=== PATIENT | male | born 1995 | race Caucasian/White ===

== ENCOUNTER 2023-01-06 16:32 | Emergency (ER) | payer OTHER ==
[~2023-01-06] VITALS: Ht 170.2 cm; Wt 61.2 kg
[2023-01-06 17:01] LABS: BASOPHILS % (AUTO) 1 % (0-10); EOSINOPHILS # (AUTO) 0.1 10^3/uL (0.0-0.3); EOSINOPHILS % (AUTO) 1 % (0-10); HEMATOCRIT 42 % (40-54); HEMOGLOBIN 14.5 g/dL (13.3-17.7); LYMPHOCYTES # (AUTO) 3.6 10^3/uL (1.0-4.0); LYMPHOCYTES % (AUTO) 56 % (12-44); MEAN CORPUSCULAR HEMOGLOBIN 29 pg (25-34); MEAN CORPUSCULAR HGB CONC 34 g/dL (32-36); MEAN CORPUSCULAR VOLUME 85 fL (80-99); MEAN PLATELET VOLUME 10.1 fL (9.0-12.2); MONOCYTES # (AUTO) 0.3 10^3/uL (0.0-1.0); MONOCYTES % (AUTO) 5 % (0-12); NEUTROPHILS # (AUTO) 2.5 10^3/uL (1.8-7.8); NEUTROPHILS % (AUTO) 38 % (42-75); PLATELET COUNT 327 10^3/uL (130-400); WHITE BLOOD COUNT 6.6 10^3/uL (4.3-11.0)
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
[2023-01-06 17:18] LABS: ALBUMIN 4.2 GM/DL (3.2-4.5); POTASSIUM 3.7 MMOL/L (3.6-5.0)
[2023-01-06 17:19] LABS: CALCIUM 9.3 MG/DL (8.5-10.1)
[2023-01-06 17:20] LABS: INR 0.8 (0.8-1.4); PROTHROMBIN TIME PATIENT 11.7 SEC (12.2-14.7); TOTAL PROTEIN 6.7 GM/DL (6.4-8.2)
[2023-01-06 17:22] LABS: BILIRUBIN,TOTAL 0.4 MG/DL (0.1-1.0)
[2023-01-06 17:24] LABS: CREATININE SERUM 1.08 MG/DL (0.60-1.30)
[2023-01-06] MEDS ORDERED: morphine INJ 10 MG/ML 1ML (SYR OR VIAL) IVP ONE (17:30)
[2023-01-06] MEDS ORDERED: ONDANSETRON 4 MG/2 ML (SDV) Z0FRAN IVP ONE (17:30)
[2023-01-06 17:34] LABS: BILIRUBIN,URINE NEGATIVE (NEGATIVE); CLARITY,URINE CLEAR; COLOR,URINE YELLOW; GLUCOSE, URINE (UA) 3+ (NEGATIVE); KETONES,URINE NEGATIVE (NEGATIVE); LEUKOCYTE ESTERASE ,URINE NEGATIVE (NEGATIVE); NITRITE,URINE NEGATIVE (NEGATIVE); PROTEIN,URINE 1+ (NEGATIVE)
[2023-01-06 17:45] LABS: BACTERIA,URINE NEGATIVE /HPF; RBC,URINE RARE /HPF; SQUAMOUS EPITHELIAL CELL,UR 0-2 /HPF
--- NOTE | 2023-01-06 18:18 | Diagnostic Imaging Report ---
PROCEDURE: CT abdomen and pelvis with contrast. TECHNIQUE: Multiple contiguous axial images were obtained through the abdomen and pelvis after administration of intravenous contrast. Auto Exposure Controls were utilized during the CT exam to meet ALARA standards for radiation dose reduction. All CT scans use one or more of the following dose optimizing techniques: automated exposure control, MA and/or KvP adjustment based on patient size and exam type or iterative reconstruction. INDICATION: Abdominal pain, black stools COMPARISON: None available. FINDINGS: The visualized lung bases are clear. Cholecystectomy. The liver is mildly enlarged. No focal hepatic mass. The spleen is unremarkable. The adrenal glands are unremarkable. The pancreas is unremarkable. The kidneys are unremarkable. No aneurysmal dilatation of the abdominal aorta. The urinary bladder is predominantly decompressed, therefore not well evaluated. What is felt to relate to the appendix is unremarkable. No bowel obstruction or pneumatosis. No significant inflammatory stranding within the abdomen or pelvis. No significant adenopathy, free air, or free fluid within the abdomen or pelvis. Minimal scattered osseous degenerative changes without acute osseous abnormality. IMPRESSION: Mild hepatomegaly. Cholecystectomy. No acute abnormality identified. Dictated by: Dictated on workstation # [id number]
[2023-01-06] MEDS ORDERED: IOHEXOL 350 MG/ML 100 ML (OMNIPAQUE 350) VIAL IV ONE (18:30)
[2023-01-06] MEDS ORDERED: NS 100 ML (IVPB) BAG IV ONE (18:30)
[2023-01-06] MEDS ORDERED: HOLD METFORMIN - RECEIVED CONTRAST 20 ML VIAL IV SCH (18:30)
[2023-01-06 18:40] VITALS: BP 105/73
[2023-01-06] MEDS ORDERED: KETOROLAC 30 MG/ML VIAL IVP ONE (18:45)
== END 2023-01-06 18:40 | disposition home or self-care (01) ==
LOC: ER 16:35
DX: R10.13 Epigastric pain (principal); R10.12 Left upper quadrant pain; R10.32 Left lower quadrant pain; R16.0 Hepatomegaly, not elsewhere classified
CPT/HCPCS: 36415; 74177; 80053; 81000; 83690; 85025; 85610; 85730

== ENCOUNTER 2023-04-30 07:33 | Emergency (ER) | payer OTHER ==
[~2023-04-30] VITALS: Ht 170 cm; Wt 61.0 kg
--- NOTE | 2023-04-30 07:56 | ED Chest Pain ---
General Chief Complaint: Chest Pain Stated Complaint: CHEST PAIN | LEFT ARM PAIN | HEADACHE Nursing Triage Note: PT AMB TO RM 5 PT CO OF CHEST PAIN FOR APPROX 1 HOUR MIDDLE OF CHEST INTERMITTENT 7/10. PT CO OF NAUSEA. HAS SOME DIARRHEA BUT STATES IS NORMAL FOR HIM. PT HAS TYPE 1 IDDM FSBS THIS AM AT HOME 264. PT STATES HAS TAKEN 6 UNTIS OF NOVALIN INSULIN. PT STATES HAS ALSO HAD A JOHN FOR APPROX WEEK Source: patient Exam Limitations: no limitations History of Present Illness Date Seen by Provider: Apr 30, 2023 Time Seen by Provider: 07:43 Initial Comments Patient is a 27-year-old male who is a type I diabetic presents to the emergency room with a chief complaint left-sided substernal chest pain. 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 He states he is nauseated. No shortness of breath, no cough. Pain does not radiate. Nothing makes it any better or worse. He did take 2 regular strength Tylenol and 2 ibuprofen this morning. No relief. He also took some Tums. He also is complaining of intermittent left- sided frontal headache for 2 weeks. He states he may have an hour of relief once a day. Nothing makes the headache any better, nothing makes it any worse. No associated symptoms. He does not have a primary care physician. He sees an motion picture projectionist for his diabetes in [place]. Last visit was 6 months ago. Non smoker. No family history of early CAD. No recent fevers or chills. Chronic diarrhea after cholecystectomy. No other illlnesses that he takes medications for. Timing/Duration: 1 hour (chest pain) Severity/Quality: moderate ("7"), sharp Location: substernal Radiation: no radiation Activities at Onset: activity (@ work at retirement) Prior CP/Workup: no prior chest pain, no prior cardiac workup ASA po BREAKFAST MANAGER: No NTG SL BREAKFAST MANAGER: No Associated Symptoms: headache Allergies and Home Medications Allergies Coded Allergies: Sulfa (Sulfonamide Antibiotics) (Verified Allergy, Unknown, 01/06/23) Patient Home Medication List Home Medication List Reviewed: Yes Review of Systems Review of Systems Constitutional: see HPI Respiratory: No Symptoms Reported Cardiovascular: Chest Pain Gastrointestinal: Nausea Genitourinary: No Symptoms Reported Musculoskeletal: no symptoms reported Skin: no symptoms reported Psychiatric/Neurological: Headache Past Ogojivu-Zjyylu-Niygmt Hx Patient Social History Tobacco Use?: No Substance type: Marijuana Substance frequency: Once in a while Alcohol Use?: No Pt feels they are or have been: No Immunizations Up To Date First/Initial COVID19 Vaccinat: X2 Second COVID19 Vaccination Armen: X2 Third COVID19 Vaccination Date: X2 Past Medical History Surgery/Hospitalization HX: DM1 SANDEEP, TONSILS Physical Exam Vital Signs Vital Signs - First Documented 04/30/23 07:40 Temp 36.1 Pulse 94 Resp 27 B/P (MAP) 91/69 (76) Pulse Ox 98 Capillary Refill : Less Than 3 Seconds Height, Weight, BMI Height: '" Weight: lbs. oz. kg; 21.00 BMI Method: General Appearance: No Apparent Distress, Thin HEENT: PERRL/EOMI Respiratory: Lungs Clear, Normal Breath Sounds, No Accessory Muscle Use, No Respiratory Distress Cardiovascular: Regular Rate, Rhythm, Normal Peripheral Pulses Gastrointestinal: Non Tender, Soft Extremity: Normal Inspection, Normal Range of Motion, Non Tender, No Calf Tenderness Neurologic/Psychiatric: Alert, Oriented x3, No Motor/Sensory Deficits, Normal Mood/Affect, strike plate attacher II-XII Norm as Tested Skin: Normal Color, Warm/Dry Progress/Results/Core Measures Results/Orders Lab Results Laboratory Tests Test 04/30/23 07:53 04/30/23 08:01 04/30/23 08:15 04/30/23 11:06 Range/Units Sodium Level 135 135-145 MMOL/L Potassium Level 4.0 3.6-5.0 MMOL/L Chloride Level 100 98-107 MMOL/L Carbon Dioxide Level 24 21-32 MMOL/L Anion Gap 11 5-14 MMOL/L Blood Urea Nitrogen 14 7-18 MG/DL Creatinine 0.96 0.60-1.30 MG/DL Estimat Glomerular Filtration Rate 111 BUN/Creatinine Ratio 15 Glucose Level 237 H 70-105 MG/DL Calcium Level 10.1 8.5-10.1 MG/DL Corrected Calcium 9.9 8.5-10.1 MG/DL Total Bilirubin 0.2 0.1-1.0 MG/DL Aspartate Amino Transf (AST/SGOT) 37 H 5-34 U/L Alanine Aminotransferase (ALT/SGPT) 40 0-55 U/L Alkaline Phosphatase 217 H 40-136 U/L Troponin I < 0.028 < 0.028 <0.028 NG/ML Total Protein 8.1 6.4-8.2 GM/DL Albumin 4.3 3.2-4.5 GM/DL Glucometer 239 H 70-110 MG/DL White Blood Count 7.1 4.3-11.0 10^3/uL Red Blood Count 5.19 4.30-5.52 10^6/uL Hemoglobin 14.8 13.3-17.7 g/dL Hematocrit 45 40-54 % Mean Corpuscular Volume 87 80-99 fL Mean Corpuscular Hemoglobin 29 25-34 pg Mean Corpuscular Hemoglobin Concent 33 32-36 g/dL Red Cell Distribution Width 11.7 10.0-14.5 % Platelet Count 321 130-400 10^3/uL Mean Platelet Volume 10.5 9.0-12.2 fL Immature Granulocyte % (Auto) 0 % Neutrophils (%) (Auto) 45 42-75 % Lymphocytes (%) (Auto) 46 H 12-44 % Monocytes (%) (Auto) 6 0-12 % Eosinophils (%) (Auto) 3 0-10 % Basophils (%) (Auto) 0 0-10 % Neutrophils # (Auto) 3.2 1.8-7.8 10^3/uL Lymphocytes # (Auto) 3.2 1.0-4.0 10^3/uL Monocytes # (Auto) 0.4 0.0-1.0 10^3/uL Eosinophils # (Auto) 0.2 0.0-0.3 10^3/uL Basophils # (Auto) 0.0 0.0-0.1 10^3/uL Immature Granulocyte # (Auto) 0.0 0.0-0.1 10^3/uL My Orders Orders - ELMIRA FELIX MD Ekg Tracing (04/30/23 07:43) Ed Iv/Invasive Line Start (04/30/23 07:56) Cbc With Automated Diff (04/30/23 07:56) Comprehensive Metabolic Panel (04/30/23 07:56) Troponin I [place] (04/30/23 07:56) Chest 1 View, Ap/Pa Only (04/30/23 07:56) Accucheck Stat ONCE (04/30/23 07:56) Ondansetron Injection (Zofran Injectio (04/30/23 08:30) Orphenadrine Inj (Ed Only) (Norflex Inje (04/30/23 08:30) Ketorolac Injection (Toradol Injection) (04/30/23 10:00) Troponin I [place] (04/30/23 10:46) Medications Given in ED Current Medications Medications Dose Ordered Sig/Odalis Route Start Time Stop Time Status Last Admin Dose Admin Ketorolac Tromethamine 15 mg ONCE ONCE IVP 04/30/23 10:00 04/30/23 10:01 DC 04/30/23 10:08 15 MG Ondansetron HCl 4 mg ONCE ONCE IVP 04/30/23 08:30 04/30/23 08:31 DC 04/30/23 08:22 4 MG Orphenadrine Citrate 60 mg ONCE ONCE IV 04/30/23 08:30 04/30/23 08:31 DC 04/30/23 08:22 60 MG Vital Signs/I&O 04/30/23 07:40 Temp 36.1 Pulse 94 Resp 27 B/P (MAP) 91/69 (76) Pulse Ox 98 Blood Pressure Mean: 76 Progress Progress Note : Time: 12:16 Progress Note Patient seen and evaluated by me. Evaluation today includes physical exam, CBC, Chem-12, EKG, single view chest x-ray, troponin x2. Pertinent physical exam findings thin pale 27-year-old male in no acute distress. HEENT exam unremarkable other than poor overall dentition. Heart is regular, lungs are clear. No reproducible chest wall tenderness. Abdomen soft nontender nondistended. No lower extremity edema or calf tenderness. Multiple healing small wounds to the skin multiple scars from prior skin wounds. No focal neurologic deficits. Cranial nerves intact. Differential diagnosis based on history and physical exam, DKA, dehydration, NSTEMI/ACS Labs, EKG and chest x-ray independently reviewed and interpreted by me. CBC is completely normal. Chem-12 shows a glucose of 237, alk phos of 217. EKG shows nonspecific ST-T wave changes without any ST elevation or depression. No ectopy is noted. Chest x-ray no focal infiltrates or effusion. Troponin is negative x2 4 hours apart. Patient was treated in the emergency department with Zofran, Norflex and Toradol. He feels improved at the time of this dictation. He tells me that the last time he saw his motion picture projectionist was approximately a year ago. He relates that his A1c was over "10". This implies poor overall control and management of his diabetes. We discussed the importance of taking good care of his blood sugar and hydration. I do suspect that he is functionally dehydrated and this is contributing to headache and chest pain. He has no evidence of acute coronary syndrome at this time. No evidence of anything significant contributing to headache such as subarachnoid hemorrhage, brain tumor, meningitis. I discussed with him drinking lots of water avoiding sodas and caffeinated beverages. I strongly encouraged him to follow-up with a primary ca re provider as well as his motion picture projectionist. We discussed the long-term consequences of poor blood sugar management such as neuropathy, renal failure, poorly healing wounds and increased risk for cardiac events and dementia. He verbalized understanding of the plan of care. Return precautions provided in both verbal and written format. Patient is improved at discharge Initial ECG Impression Date: Apr 30, 2023 Initial ECG Impression Time: 07:48 Initial ECG Rate: 92 Initial ECG Rhythm: Normal Sinus Initial ECG Intervals ND 92 QRS 82 QTc 361 Initial ECG Impression: Nonspecific Changes Initial ECG Comparisson: No Previous ECG Available Diagnostic Imaging Diagonstic Imaging: Xray Plain Films/CT/US/NM/MRI: chest Comments [facility], [facility]. [place], [place] NAME: ALESSANDRA LEA [facility] REC#: [id number] PT STATUS: REG ER : 1995 PHYSICIAN: ELMIRA FELIX MD ADMIT DATE: 04/30/23/ER Draft Date of Exam:04/30/23 CHEST 1 VIEW, AP/PA ONLY EXAMINATION: Chest 1 view HISTORY: Chest pain COMPARISON: None available. FINDINGS: Heart size and pulmonary vasculature are normal. The lungs are clear without consolidation, pleural effusion, or pneumothorax. The osseous structures are intact. IMPRESSION: 1. No acute radiographic abnormality in the chest. Dictated on workstation # [id number] Dict: 04/30/23814 Trans: 04/30/23822 [facility] [id number] Interpreted by: EMIL DICKENS DO Electronically signed by: Departure Impression Primary Impression: Chest pain Qualified Codes: R07.9 - Chest pain, unspecified Additional Impression: Headache above the eye region Disposition: HOME, SELF-CARE Condition: Improved Departure-Patient Inst. Decision time for Depature: 12:09 Referrals: [facility] [place],LOCAL PHYSICIAN (PCP) Primary Care Physician Patient Instructions: Headache, Adult ED, Chest Pain That Is Not Caused by the Heart (DC) Add. Discharge Instructions: Continue all your routine medications/insulin as prescribed. You need to follow-up with your motion picture projectionist. You also need to follow-up with a primary care provider to manage other medical/health needs. [id number] naproxen (generic Aleve) 500 mg twice a day with food as needed for headache/pain. Always take this medication with food. If you develop any new, emergent or concerning symptoms please return to the emergency department for reevaluation. Work/School Note: Work Release Form Date Seen in the Emergency Department: Apr 30, 2023 Return to Work: May 01, 2023 ELMIRA FELIX MD Apr 30, 2023 07:56
[2023-04-30 08:14] LABS: ALBUMIN 4.3 GM/DL (3.2-4.5); CHLORIDE 100 MMOL/L (98-107); SODIUM 135 MMOL/L (135-145)
[2023-04-30 08:15] LABS: CALCIUM 10.1 MG/DL (8.5-10.1)
[2023-04-30 08:16] LABS: GLUCOSE 237 MG/DL (70-105)
[2023-04-30 08:17] LABS: TOTAL PROTEIN 8.1 GM/DL (6.4-8.2)
[2023-04-30 08:18] LABS: BILIRUBIN,TOTAL 0.2 MG/DL (0.1-1.0); CARBON DIOXIDE 24 MMOL/L (21-32)
[2023-04-30 08:20] LABS: ALKALINE PHOSPHATASE 217 U/L (40-136); CREATININE SERUM 0.96 MG/DL (0.60-1.30); GFR ESTIMATED 111
[2023-04-30 08:21] LABS: BASOPHILS % (AUTO) 0 % (0-10); EOSINOPHILS # (AUTO) 0.2 10^3/uL (0.0-0.3); EOSINOPHILS % (AUTO) 3 % (0-10); HEMATOCRIT 45 % (40-54); HEMOGLOBIN 14.8 g/dL (13.3-17.7); LYMPHOCYTES # (AUTO) 3.2 10^3/uL (1.0-4.0); LYMPHOCYTES % (AUTO) 46 % (12-44); MEAN CORPUSCULAR HEMOGLOBIN 29 pg (25-34); MEAN CORPUSCULAR HGB CONC 33 g/dL (32-36); MEAN CORPUSCULAR VOLUME 87 fL (80-99); MEAN PLATELET VOLUME 10.5 fL (9.0-12.2); MONOCYTES # (AUTO) 0.4 10^3/uL (0.0-1.0); MONOCYTES % (AUTO) 6 % (0-12); NEUTROPHILS # (AUTO) 3.2 10^3/uL (1.8-7.8); NEUTROPHILS % (AUTO) 45 % (42-75); PLATELET COUNT 321 10^3/uL (130-400); WHITE BLOOD COUNT 7.1 10^3/uL (4.3-11.0)
[2023-04-30 08:21] LABS: BUN/CREATININE RATIO 15
[2023-04-30 08:23] LABS: ALANINE AMINOTRANSFERASE 40 U/L (0-55)
--- NOTE | 2023-04-30 08:23 | Diagnostic Imaging Report ---
EXAMINATION: Chest 1 view HISTORY: Chest pain COMPARISON: None available. FINDINGS: Heart size and pulmonary vasculature are normal. The lungs are clear without consolidation, pleural effusion, or pneumothorax. The osseous structures are intact. IMPRESSION: 1. No acute radiographic abnormality in the chest. Dictated by: Dictated on workstation # [id number]
[2023-04-30] MEDS ORDERED: ONDANSETRON 4 MG/2 ML (SDV) Z0FRAN IVP ONE (08:30)
[2023-04-30] MEDS ORDERED: ORPHENADRINE 60 MG/2 ML (NORFLEX) AMP (ED ONLY) IV ONE (08:30)
[2023-04-30] MEDS ORDERED: KETOROLAC 15 MG/ML VIAL IVP ONE (10:00)
[2023-04-30 12:30] VITALS: BP 108/75
== END 2023-04-30 12:32 | disposition home or self-care (01) ==
LOC: EDUNIT# 07:33 → ER 07:35
DX: R07.82 Intercostal pain (principal); R51.9 Headache, unspecified; E10.9 Type 1 diabetes mellitus without complications; Z79.4 Long term (current) use of insulin
CPT/HCPCS: 36415; 71045; 80053; 82947; 84484; 85025; 93005

== ENCOUNTER → 2023-10-05 | Outpatient (CLI) | payer OTHER | LOC: WOUNDCARE 13:32 | PROVIDERS: ATTEND Family Medicine | DX: E10.622 Type 1 diabetes mellitus with other skin ulcer (principal); L97.222 Non-pressure chronic ulcer of left calf with fat layer exposed; E10.65 Type 1 diabetes mellitus with hyperglycemia; L30.9 Dermatitis, unspecified; L03.116 Cellulitis of left lower limb; E10.52 Type 1 diabetes mellitus with diabetic peripheral angiopathy with gangrene | CPT/HCPCS: 11042; A6197; A6212; G0463 ==

== ENCOUNTER → 2023-10-15 | Outpatient (CLI) | payer OTHER | LOC: WOUNDCARE 08:22 | PROVIDERS: ATTEND Family Medicine | DX: I96 Gangrene, not elsewhere classified (principal); E11.622 Type 2 diabetes mellitus with other skin ulcer; E11.65 Type 2 diabetes mellitus with hyperglycemia; L97.222 Non-pressure chronic ulcer of left calf with fat layer exposed; L30.8 Other specified dermatitis | CPT/HCPCS: 83036; 85652; 86038; 86039; 86141; 86431; A6212; G0463; 36415; 99212 ==